=== PATIENT | female | born 1980 | race Caucasian/White ===

== ENCOUNTER → 2016-12-03 | Outpatient (CLI) | payer OTHER | LOC: MMGSC 17:13 | PROVIDERS: ATTEND Family Medicine | DX: N39.0 Urinary tract infection, site not specified (principal) | CPT/HCPCS: 87086 ==

== ENCOUNTER → 2020-10-01 | Outpatient (CLI) | payer OTHER | LOC: CPPFTMAIN 16:10 | PROVIDERS: ATTEND Family Medicine | DX: E88.01 Alpha-1-antitrypsin deficiency (principal) | CPT/HCPCS: 94060; 94726; 94729 ==

== ENCOUNTER → 2020-10-10 | Outpatient (CLI) | payer OTHER ==
--- NOTE | 2020-10-10 07:15 | CT ---
EXAMINATION TYPE: CT chest wo con DATE OF EXAM: 10/10/2020 COMPARISON: None HISTORY: SOB, Dyspnea CT DLP: [address] of the chest was performed with lung and mediastinal window settings submitted. The la ck of contrast limits evaluation of the vascular, mediastinal and parenchymal structures including th e upper abdomen. LUNGS: The lungs are clear and free of infiltrate. No atelectasis. No pulmonary nodule or mass is de tected. No pleural effusion. No CT evidence of interstitial lung disease. MEDIASTINUM/FABY: Thoracic aorta is of normal caliber with limited evaluation given lack of contrast . The heart is not enlarged. No evidence for mediastinal mass. No lymph nodes greater than 1cm. UPPER ABDOMEN: No significant abnormality is seen. OTHER: No significant other abnormality. IMPRESSION: 1. No distinct abnormality appreciated.
== END | disposition home or self-care (01) ==
LOC: RADCTMAIN 06:27
PROVIDERS: ATTEND Internal Medicine Pulmonary Disease
DX: R06.00 Dyspnea, unspecified (principal); E88.01 Alpha-1-antitrypsin deficiency; T37.8X5A Adverse effect of other specified systemic anti-infectives and antiparasitics, initial encounter
CPT/HCPCS: 71250

== ENCOUNTER → 2020-12-30 | Outpatient (CLI) | payer OTHER ==
--- NOTE | 2020-12-31 11:16 | MM ---
Reason for exam: screening (asymptomatic). Baseline mammogram. History: Family history of breast cancer in maternal aunt and breast cancer in paternal aunt. Physical Findings: Nurse did not find any significant physical abnormalities on exam. MG Screening Mammo w CAD Bilateral CC and MLO view(s) were taken. The breast tissue is extremely dense which could obscure a lesion on mammography. There is no discrete abnormality. No significant changes when compared with prior studies. ASSESSMENT: Negative, BI-RAD 1 RECOMMENDATION: Routine screening mammogram of both breasts in 1 year.
== END | disposition home or self-care (01) ==
LOC: RADMAMWWP 14:12
PROVIDERS: ATTEND Family Medicine
DX: Z12.31 Encounter for screening mammogram for malignant neoplasm of breast (principal); Z80.3 Family history of malignant neoplasm of breast
CPT/HCPCS: 77067

== ENCOUNTER → 2021-06-13 | Outpatient (CLI) | payer OTHER ==
--- NOTE | 2021-06-13 17:12 | US ---
EXAMINATION TYPE: US pelvis complete transvag DATE OF EXAM: 06/13/2021 COMPARISON: NONE CLINICAL HISTORY: N93.9 Abnormal uterine bleeding. Heavy menstruation TECHNIQUE: Transvaginal (TV) and Transabdominal (TA) . Transabdominal sonographic images of the pel vis were acquired. G 3 P 2 Date of LMP: 05/31/2021 EXAM MEASUREMENTS: Uterus: 11.2 x 5.4 x 4.6 cm Endometrial Stripe: 1.0 cm Right Ovary: 3.3 x 3.2 x 1.8 cm Left Ovary: 3.7 x 2.0 x 1.7 cm 1. Uterus: Anteverted wnl 2. Endometrium: wnl 3. Right Ovary: wnl 4. Left Ovary: wnl 5. Bilateral Adnexa: wnl 6. Posterior cul-de-sac: wnl Multiple cysts seen in cervix, largest measured 1.2 x 1.5 x 1.0 cm IMPRESSION: Cervical nabothian cysts.
== END | disposition home or self-care (01) ==
LOC: RADUSWWP 16:08
PROVIDERS: ATTEND Obstetrics & Gynecology
DX: N88.8 Other specified noninflammatory disorders of cervix uteri (principal)
CPT/HCPCS: 76830; 76856

== ENCOUNTER → 2023-09-15 | Outpatient (CLI) | payer OTHER ==
--- NOTE | 2023-09-16 19:25 | MM ---
Reason for Exam: Screening (asymptomatic). Last mammogram was performed 2 year(s) and 9 month(s) ago. Patient History: Menarche at age 13. First Full-Term at age 26. Postmenopausal. Paternal aunt had breast cancer. Maternal aunt had breast cancer. Risk Values: Nicki 5 year model risk: 0.8%. NCI Lifetime model risk: 9.8%. Prior Study Comparison: 12/30/2020 Bilateral Screening Mammogram, [facility]. Tissue Density: The breasts are heterogeneously dense, which may obscure small masses. Findings: Analyzed By CAD. There is no suspicious group of microcalcifications or new suspicious mass in either breast. Overall Assessment: Negative, BI-RAD 1 Management: Screening Mammogram of both breasts in 1 year. . Patient should continue monthly self-breast exams. A clinical breast exam by your physician is recommended on an annual basis. This exam should not preclude additional follow-up of suspicious palpable abnormalities. Note on Nicki scores and lifetime risk: 1. A Nicki score greater than 3% is considered moderate risk. If this is the case, consider specialist referral to assess eligibility for a risk reducing agent. 2. If overall lifetime risk for the development of breast cancer is 20% or higher, the patient may qualify for future screening with alternating mammogram and breast MRI. Electronically signed and approved by: Kenton Mojica M.D. Radiologist
== END | disposition home or self-care (01) ==
LOC: RADMAMWWP 14:58
PROVIDERS: ATTEND Family Medicine
DX: Z12.31 Encounter for screening mammogram for malignant neoplasm of breast (principal); Z78.0 Asymptomatic menopausal state; Z80.3 Family history of malignant neoplasm of breast
CPT/HCPCS: 77067

== ENCOUNTER → 2023-09-15 | Outpatient (CLI) | payer OTHER ==
--- NOTE | 2023-09-16 08:14 | XR ---
EXAMINATION TYPE: XR chest 2V DATE OF EXAM: 09/15/2023 COMPARISON: NONE HISTORY: Chest pain TECHNIQUE: Frontal and lateral views of the chest are obtained. FINDINGS: There is no focal air space opacity. No evidence for pneumothorax. No pleural effusion. The cardiac silhouette size is within normal limits. The osseous structures are grossly intact. IMPRESSION: 1. No acute cardiopulmonary process.
== END | disposition home or self-care (01) ==
LOC: RADXRMAIN 14:46
PROVIDERS: ATTEND Family Medicine
DX: R07.9 Chest pain, unspecified (principal)
CPT/HCPCS: 71046